=== PATIENT | male | born 1990 | race Caucasian/White ===

== ENCOUNTER 2018-01-27 23:12 | Emergency (ER) | payer OTHER | END 2018-01-28 | disposition other institution (70) | LOC: ED 23:12 | DX: Z02.89 Encounter for other administrative examinations (principal) ==

== ENCOUNTER 2018-01-27 23:12 | Emergency (ER) | payer MEDICAID ==
[~2018-01-27] VITALS: Ht 182.9 cm; Wt 89.8 kg
[2018-01-27 23:16] VITALS: Ht 182.9 cm; Wt 89.8 kg
[2018-01-28 00:04] VITALS: BP 132/70
== END 2018-01-28 | disposition other institution (70) ==
LOC: ED 23:12
DX: S00.83XA Contusion of other part of head, initial encounter (principal); R04.0 Epistaxis; Z13.89 Encounter for screening for other disorder; Y04.0XXA Assault by unarmed brawl or fight, initial encounter; Y93.89 Activity, other specified; Y92.89 Other specified places as the place of occurrence of the external cause; Y99.8 Other external cause status
CPT/HCPCS: J7030

== ENCOUNTER 2019-06-13 18:47 | Emergency (ER) | payer SELFPAY ==
[~2019-06-13] VITALS: Ht 172.7 cm; Wt 74.8 kg
[2019-06-13 19:08] VITALS: Ht 172.7 cm; Wt 74.8 kg
[2019-06-13 19:39] VITALS: BP 128/98
== END 2019-06-13 19:39 | disposition other institution (70) ==
LOC: ED 18:47
DX: S40.811A Abrasion of right upper arm, initial encounter (principal); S40.812A Abrasion of left upper arm, initial encounter; S00.81XA Abrasion of other part of head, initial encounter; Y04.8XXA Assault by other bodily force, initial encounter; Y93.89 Activity, other specified; Y92.89 Other specified places as the place of occurrence of the external cause; Y99.8 Other external cause status
CPT/HCPCS: 82962

== ENCOUNTER 2019-06-13 18:47 | Emergency (ER) | payer OTHER | END 2019-06-13 19:39 | disposition other institution (70) | LOC: ED 18:47 | DX: Z02.89 Encounter for other administrative examinations (principal) ==